=== PATIENT | male | born 1980 | race Caucasian/White ===

== ENCOUNTER 2020-04-10 09:13 | Emergency (ER) | payer BC ==
[~2020-04-10] VITALS: Ht 185.4 cm; Wt 78.2 kg
[2020-04-10] MEDS ORDERED: OXYC-325 PO (09:44)
[2020-04-10] MEDS ORDERED: ORPH-16 PO (09:44)
--- NOTE | 2020-04-10 09:46 | PHYS DOC ---
Past History Past Medical History: No Pertinent History Additional Past Surgical Histo: Lipoma removal Smoking: Cigarettes, Less than 1pk/day Alcohol Use: Occasionally Drug Use: Marijuana General Adult EDM: Chief Complaint: RIB PAIN HPI: HPI: 39-year-old male presents with report of left lateral chest wall pain which is been ongoing for the past 4 days. Patient reports initially started when he was turning over with his infant son and his arms and felt a "pop "to his left rib cage. Denies bruising. Denies shortness of air. Denies leg swelling or calf tenderness. Denies diaphoresis or nausea. Patient reports he was able to obtain some Percocet from a friend and has been taking that with some improvement. Reports awoke this morning with significant pain and therefore decided to present to the ER for further evaluation. Review of Systems: Review of Systems: Constitutional: Denies fever or chills Eyes: Denies redness or eye pain HENT: Denies nasal congestion or sore throat Respiratory: Denies cough or shortness of breath Cardiovascular: Reports left lateral chest wall pain; denies palpitations GI: Denies abdominal pain, nausea, or vomiting : Denies dysuria or hematuria Musculoskeletal: Denies back pain or joint pain Integument: Denies rash or skin lesions Neurologic: Denies headache, focal weakness or sensory changes Complete systems were reviewed and found to be within normal limits, except as documented in this note. Current Medications: Current Meds: Current Medications Medications (Trade) Dose Ordered Sig/Karoline Start Time Stop Time Status Last Admin Dose Admin Ketorolac Tromethamine (Toradol 30mg Vial) 30 mg 1X ONCE 04/10/20 09:30 04/10/20 09:31 UNV Orphenadrine Citrate (Norflex) 60 mg 1X ONCE 04/10/20 09:30 04/10/20 09:31 UNV Physical Exam: PE: Constitutional: Well developed, well nourished, no acute distress, non-toxic appearance HENT: Normocephalic, atraumatic Eyes: Conjunctiva normal, no discharge Neck: Normal range of motion, no tenderness, supple Lungs & Thorax: No respiratory distress, equal chest rise and fall, left lateral lower rib pain on palpation Abdomen: Soft, no tenderness Skin: Warm, dry, no erythema, no rash Back: No tenderness, no CVA tenderness Extremities: No tenderness, ROM intact, no edema Neurologic: Alert and oriented X 3, no focal deficits noted Psychologic: Affect normal, judgment normal EKG: EKG: [] Radiology/Procedures: Radiology/Procedures: PROCEDURE: RIBS LEFT AND PA CHEST RIBS LEFT AND PA CHEST 04/10/2020 9:30 AM INDICATION: Left chest wall pain COMPARISON: None available TECHNIQUE: Portable frontal view of the chest is provided. 3 views of the left ribs are provided. FINDINGS: The cardiomediastinal silhouette is within normal limits. Lungs are clear. There are no significant pleural effusions. There is no pulmonary vascular congestion. No pneumothorax. Mildly displaced fracture of the left anterior seventh rib. IMPRESSION: Mildly displaced fracture of the anterior left seventh rib. No pneumothorax. Electronically signed by: Genie Elkins MD (04/10/2020 9:55 AM) [facility] Course & Med Decision Making: Course & Med Decision Making Pertinent Imaging studies reviewed. (See chart for details) Patient presents with left lateral chest wall pain which is reproducible on palpation. Denies known trauma. Reports occurred when he was twisting while holding a child. Vital signs stable. Left rib XR and PA chest with findings of non to mildly displaced rib fracture. Symptomatic treatment provided. Ice applied. Incentive spirometer provided with education. KTRACs reviewed without any data to report. Advised to not obtain narcotic meds from friends and to only take meds he is prescribed. Patient stable for discharge with outpatient follow-up with PCP. Discussed findings and plan with patient, who acknowledges understanding and agreement. Fabiana Disclaimer: Fabiana Disclaimer: This electronic medical record was generated, in whole or in part, using a voice recognition dictation system. Departure Departure: Impression: Primary Impression: Rib fracture Qualified Codes: S22.32XA - Fracture of one rib, left side, initial encounter for closed fracture Disposition: HOME/RESIDENCE PRIOR TO ADM Condition: STABLE Referrals: PCP,NO (PCP) Patient Instructions: Incentive Spirometer, Rib Fracture, [id number] Additional Instructions: ICE area 20 min on then leave off for next 20 min. Repeat as needed for next few days. May also take over the counter Ibuprofen for pain or discomfort. You may also call and make an appointment with a provisioning specialist; Dr. Armaan De La Cruz [address] [place] [address] Scripts Orphenadrine Citrate (ORPHENADRINE CITRATE) 100 Mg Tablet.er 1 TAB PO BID PRN for MUSCLE PAIN, #14 TAB 0 Refills Prov: DEO WHITE DO 04/10/20 Oxycodone HCl/Acetaminophen (Percocet 5-325 mg Tablet) 1 Each Tablet 0.5-1 TAB PO Q6HRS PRN for PAIN MDD 2 Tablet(s), #10 TAB 0 Refills Prov: DEO WHITE DO 04/10/20 PERC Rule for PE PERC Rule for PE Response (Comments) Value Age > 50: No 0 HR > 100: No 0 Sa02 on room air <95%: No 0 Unilateral leg swelling: No 0 Hemoptysis: No 0 Recent surgery or trauma: No 0 Prior PE or DVT: No 0 Hormone use: No 0 Total 0 DEO WHITE DO April 10, 2020 09:46
--- NOTE | 2020-04-10 09:57 | RAD ---
RIBS LEFT AND PA CHEST 04/10/2020 9:30 AM INDICATION: Left chest wall pain COMPARISON: None available TECHNIQUE: Portable frontal view of the chest is provided. 3 views of the left ribs are provided. FINDINGS: The cardiomediastinal silhouette is within normal limits. Lungs are clear. There are no significant pleural effusions. There is no pulmonary vascular congestion. No pneumothorax. Mildly displaced fracture of the left anterior seventh rib. IMPRESSION: Mildly displaced fracture of the anterior left seventh rib. No pneumothorax. Electronically signed by: Genie Elkins MD (04/10/2020 9:55 AM) [facility]
[2020-04-10] MEDS ORDERED: ORPHENADRINE CITRATE 60 MG/2 ML VIAL. IM ONE (10:00)
[2020-04-10] MEDS ORDERED: KETOROLAC 30 MG/ML VIAL. IM ONE (10:00)
[2020-04-10 10:20] VITALS: BP 122/69
== END 2020-04-10 10:22 | disposition home or self-care (01) ==
LOC: ER 09:13
DX: S22.32XA Fracture of one rib, left side, initial encounter for closed fracture (principal); F17.210 Nicotine dependence, cigarettes, uncomplicated; X50.9XXA Other and unspecified overexertion or strenuous movements or postures, initial encounter; Y93.89 Activity, other specified; Y92.89 Other specified places as the place of occurrence of the external cause; Y99.8 Other external cause status
CPT/HCPCS: 71101; 96372; 99284; G0238; J1885; J2360

== ENCOUNTER 2020-07-23 14:15 | Emergency (ER) | payer BC ==
[~2020-07-23] VITALS: Ht 188 cm; Wt 78.7 kg
[~2020-07-23 14:15] MED LIST: ORPH-16 PO; OXYC-325 PO
[2020-07-23 14:20] VITALS: BP 147/92
--- NOTE | 2020-07-23 14:26 | PHYS DOC ---
Past History Past Medical History: No Pertinent History Additional Past Surgical Histo: Lipoma removal Smoking: Cigarettes, Less than 1pk/day Alcohol Use: Occasionally Drug Use: Marijuana Adult General HPI HPI Patient is a 39-year-old male who presents with right neck mass. Reports this is a problem that has been going on for past 3 weeks without known inciting event, illness, or trauma. Patient reports seeing his primary care physician numerous times, he has had negative swabs for COVID-19, strep throat, and mono during that time. Patient reports most recent PCP visit was 9 days ago and was prescribed an antibiotic. He just had this filled yesterday evening, he has not started it. Patient reported initial constitutional symptoms such as fever 3 weeks ago but has been relatively asymptomatic ever since. Reports increased in right neck mass lesion at onset that increased in size with maximum size described as "size of a baseball" before decreasing to current size of a golf ball. Patient reports being asymptomatic at present but admits mild tenderness to palpation. Reports his family made him come here for evaluation as they were concerned given family history of breast cancer and cervical cancer. Patient denies any family history of leukemia, lymphoma, or other pertinent cancers related to blood and lymph symptoms. Review of Systems Review of Systems Fourteen body systems of review of systems have been reviewed. See HPI for pertinent positives and negative responses, other browning all other systems are negative, non-pertinent or non-contributory Allergies Allergies Allergies Coded Allergies Type Severity Reaction Last Updated Verified tetracycline Allergy Severe Anaphylaxis 04/10/20 Yes Physical Exam Physical Exam Constitutional: Well developed, well nourished, no acute distress, non-toxic appearance. HENT: Normocephalic, atraumatic, bilateral external ears normal, bilateral TMs without appearance of acute illness, oropharynx moist, no oral exudates, nose normal. Positive cervical lymphadenopathy, palpable enlarged right anterior cervical lymph node tender to palpation, no fluctuant mass or abnormalities present, no crepitus Eyes: PERRLA, EOMI, conjunctiva normal, no discharge. Neck: Normal range of motion, no tenderness, supple, no stridor. Cardiovascular: Heart rate regular, sinus rhythm, no murmurs rubs or gallops Lungs & Thorax: Bilateral breath sounds clear to auscultation Abdomen: Bowel sounds normal, soft, no tenderness, no masses, no pulsatile masses. Nonsurgical abdomen, no peritoneal signs Skin: Warm, dry, no erythema, no rash. Back: No tenderness, no CVA tenderness. Extremities: No tenderness, no cyanosis, no clubbing, ROM intact, no edema. Neurologic: Alert and oriented X 3, grossly normal motor & sensory function, no focal deficits noted. Psychologic: Affect normal, judgement normal, mood normal. Current Patient Data Vital Signs Vital Signs Date Time Temp Pulse Resp B/P (MAP) Pulse Ox O2 Delivery O2 Flow Rate FiO2 07/23/20 14:20 98.1 67 16 147/92 (110) 98 Room Air EKG EKG [] Radiology/Procedures Radiology/Procedures PROCEDURE: NECK SOFT TISSUE Ultrasound soft tissue neck: Reason for examination: Right-sided neck mass. Ultrasound examination of the neck was performed with attention to the area of clinical concern. There is a 2 x 2.5 x 1.2 cm lymph node in the right submandibular region. There is also an adjacent 2 x 1 x 1.8 cm nodule consistent with a lymph node in the right submandibular region. No other focal lesions are seen. IMPRESSION: Lymph nodes in the right submandibular region measuring 2.5 and 2 cm in greatest dimensions correspond to the area of clinical concern. Electronically signed by: Lila Tabares MD (07/23/2020 3:19 PM) [facility] Course & Med Decision Making Course & Med Decision Making Well-appearing asymptomatic patient seen on arrival ABCs unremarkable Comprehensive history and physical exam obtained Discussed outpatient work-up so far, offered patient ultrasound of right neck tissues which subsequently was negative for any acute pathology. Showed x2 enlarged lymph nodes without any other concerning findings. Likely residual from recent URI I agree with outpatient primary care management so far, I too agree patient needs to take course of antibiotics before further diagnostic work-up involving laboratory analysis and/or other invasive measures such as biopsy occurs I discussed this with patient that this may be an acute presentation of more concerning pathology but at present no further diagnostic work-up or intervention is indicated in emergency department setting Strict return precautions were discussed with good understanding by patient, all questions and concerns addressed prior to ER departure Dragon Disclaimer Dragon Disclaimer This electronic medical record was generated, in whole or in part, using a voice recognition dictation system. Departure Departure: Impression: Primary Impression: Enlarged lymph node in neck Disposition: HOME/RESIDENCE PRIOR TO ADM Condition: STABLE Referrals: RICH VARGHESE MD (PCP) Additional Instructions: As discussed prior to ER departure, please follow-up with your primary care physician in upcoming 1 to 9 days time for outpatient follow-up. Please take previously prescribed antibiotics as instructed to completion. Please discuss with your primary care physician future need for laboratory analysis or other invasive measures such as lymph node biopsy if enlarged lymph node continues to be problematic. As always, if you are concerned about your health and/or have any other emergent healthcare needs requiring evaluation please feel free to visit our ER again. It was a pleasure taking care of you and I wish you a speedy recovery Justification of Admission: Justification of Admission: Justification of Admission Dx: N/A NITO BUSTILLOS DO Jul 23, 2020 14:26
--- NOTE | 2020-07-23 15:22 | RAD ---
Ultrasound soft tissue neck: Reason for examination: Right-sided neck mass. Ultrasound examination of the neck was performed with attention to the area of clinical concern. There is a 2 x 2.5 x 1.2 cm lymph node in the right submandibular region. There is also an adjacent 2 x 1 x 1.8 cm nodule consistent with a lymph node in the right submandibular region. No other focal lesions are seen. IMPRESSION: Lymph nodes in the right submandibular region measuring 2.5 and 2 cm in greatest dimensions correspond to the area of clinical concern. Electronically signed by: Lila Tabares MD (07/23/2020 3:19 PM) [facility]
== END 2020-07-23 15:41 | disposition home or self-care (01) ==
LOC: ER 14:15
DX: R59.0 Localized enlarged lymph nodes (principal); F17.210 Nicotine dependence, cigarettes, uncomplicated; Z88.1 Allergy status to other antibiotic agents
CPT/HCPCS: 76536; 99284